=== PATIENT | male | born 1995 | race Caucasian/White ===

== ENCOUNTER 2016-09-26 17:10 | Emergency (ER) | payer OTHER ==
[~2016-09-26] VITALS: Ht 180.3 cm; Wt 84.1 kg
[2016-09-26 17:20] VITALS: BP 138/91; PULSE 94; RESP 18; O2SAT 99
--- NOTE | 2016-09-26 18:12 | ED.REPORT ---
HPI- Male Date of Service Sep 26, 2016 ED Provider: Dr. Milton Edwards Patient is a 21-year-old male who presents to the ED complaining of genital swelling and pain onset two weeks ago. Patient denies any new sexual partners or any trauma that could have led to his symptoms. Pain is exacerbated when he masturbates. Patient denies dysuria and discharge. Nursing Notes Stated Complaint: PENIS SWELLING Chief Complaint: General Complaint Nursing Notes Reviewed: Yes Allergies: Coded Allergies: No Known Allergies (Unverified Allergy, Unknown, 06/06/14) General Time Seen by MD: 18:12 Chief Complaint Penile redness (swelling and pain) Hx Obtained From: Patient Arrived By: Walk-in Onset Occurred: More than a week ago... (2 weeks) Symptom Duration: Since onset Severity: Current: Mild Recent Healthcare: No recent doctor visit, No recent hospitalization Similar Sx Previous: No Past Medical History Past Medical History denies Past Surgical History denies Smoking History Never Smoker Ambulatory Status Independent Review of Systems Male: Reports Penile lesion (penile pain), Denies Dysuria, Denies Penile discharge Complete sys rev & neg: except as marked. Physical Exam normal phallus tenderness of left lateral wall of penis erythema at base of glands no swelling pain increases when he masturbates Initial Vital Signs Vital Signs (First) Date Time Temp Pulse Resp B/P Pulse Ox O2 Delivery O2 Flow Rate FiO2 09/26/16 17:20 36.6 94 18 138/91 99 Room Air Initial VS: Reviewed General/Constitutional: Well-developed, Well-nourished Head / Eyes: Atraumatic, Normocephalic, PERRL ENT: Mucous membranes moist, Conjunctiva normal, No scleral icterus Neck: Supple, Non-tender, Full range of motion Respiratory: Breath sounds normal, Clear to auscultation, No respiratory distress Cardiovascular: Regular rate & rhythm, Heart sounds normal, Intact distal pulses Abdomen / GI: Soft, Non-tender, No guarding, No rebound, No distention Back: No CVA tenderness Lymphatic: No lymphadenopathy Male Genitourinary: Penis NL, No penile discharge normal phalice tenderness of left lateral wall of penis errythema at base of glands no swelling pain increases when he masturbates General/Constitutional: Awake, Alert, Well appearing, Cooperative Distress / Hydration: Positive: Distress mild Behavior: Positive: Anxious Interpretation & Diagnostics Lab Results Interpretation Test 09/26/16 19:39 Urine Color Yellow (YELLOW) Urine Appearance Clear (CLEAR,HAZY) Urine pH 7.0 (5.0-8.0) Urine Specific [place] 1.015 (1.003-1.035) Urine Protein Negativemg/dL (NEG,TRACE) Urine Glucose (UA) Negativemg/dL (NEGATIVE) Urine Ketones Negativemg/dL (NEGATIVE) Urine Occult Blood Negative (NEGATIVE) Urine Nitrite Negative (NEGATIVE) Urine Bilirubin Negative (NEGATIVE) Urine Urobilinogen Normalmg/dL (NORMAL) Urine Leukocyte Esterase Negative (NEGATIVE) Urine RBC 0-2/hpf (0-2) Urine WBC 0-5/hpf (0-5) Urine Epithelial Cells Occasional/hpf (NONE-MOD) Urine Crystals Amorphous urates (NONE Urine Bacteria None/hpf (NONE-FEW) Urine Hyaline Casts None/lpf (NONE) Urine Granular Casts None seen (NONE SEEN) Urine Waxy Casts None seen (NONE SEEN) Urine Red Blood Cell Casts None seen (NONE SEEN) Urine White Blood Cell Casts None seen (NONE SEEN) Urine Mucus None seen (None Seen) Urine Trichomonas None seen (NONE SEEN) Urine Yeast None (NONE SEEN) Urinalysis Comment None Urine Culture Reflexed Not indicated Re-Eval/Medical Decision Counseled Regarding: Diagnosis, Lab results, Need for follow-up, When/why to return to ED Discharge & Departure Shift Change Sign-Out Response to Therapy: Improved Impression: Primary Impression: Pain, penile Disposition: Home Discharge Condition All VS Reviewed: Yes Condition: Stable Patient Instructions: Balanisolitario (ED) Additional Instructions: Apply the mupirocin ointment twice daily under your foreskin as instructed. Doxycycline twice daily for 7 days for possible infection. [place] one every 6 hours as needed for severe pain. This is an opiate and can be habit forming so use it sparingly. Do not drive or drink alcohol or consume acetaminophen while taking the [place]. I would like you to set up a follow-up with the referral urologist and your primary care provider.. It is hard to say exactly why your penis is hurting. Perhaps it was from trauma or perhaps it is from an infection. Either way I think that the antibiotics are important and I also recommended close follow-up with urologist. No sexual intercourse or sexual activity until symptoms have improved. Referrals: Ayush Kerr MD (PCP) Efren Padilla MD Attestation Portion of this note were transcribed by Karishma Yang. I, Dr. Edwards, personally performed the history, physical exam, and medical decision-making: I reviewed and confirmed the accuracy for the information in the transcribed note. Signed by: jennifer Rebolledo, 09/26/16 0000 copies to: Ayush Kerr MD, Todd P DO Sep 26, 2016 18:12 KARISHMA YANG Sep 26, 2016 18:40
[2016-09-26] MEDS ORDERED: Mupirocin 2% 22 Gm Ointment TOPICAL ONE (18:45)
[2016-09-26] MEDS ORDERED: HYDROcodone-APAP 5-325 mg Tablet PO ONE (18:45)
[2016-09-26] MEDS ORDERED: cefTRIAXone Inj 250 MG, Lidocaine PF 1% Inj 0.9 ML in Syringe 1 EACH IM ONE (18:45)
[2016-09-26 19:30] VITALS: BP 138/73; PULSE 78; O2SAT 100
[2016-09-26 19:55] LABS: APPEARANCE,URINE CLEAR (CLEAR,HAZY); COLOR,URINE YELLOW (YELLOW); OCCULT BLOOD,URINE NEGATIVE (NEGATIVE); UROBILINOGEN,URINE NORMAL (NORMAL)
== END 2016-09-26 19:50 | disposition home or self-care (01) ==
LOC: SED 17:10
DX: N48.89 Other specified disorders of penis (principal)
CPT/HCPCS: 81000; 87491; 87591; 96374; 99284; J0696

== ENCOUNTER 2016-12-04 20:13 | Emergency (ER) | payer OTHER ==
[~2016-12-04] VITALS: Ht 180.3 cm; Wt 79.5 kg
[2016-12-04 20:16] VITALS: BP 135/88; PULSE 63; RESP 18; O2SAT 100
--- NOTE | 2016-12-04 21:42 | ED.REPORT ---
HPI- Male Date of Service Dec 04, 2016 ED Provider: Dr. Khang Moreno MD A 21 year old male presents to the ED complaining of penile rash that first appeared several years ago. He reports mild discomfort to the area and pustule drainage after picking at the affected area. Patient presents to the ED tonight because his symptoms became increasingly worse. He was previously seen in the ED on 09/26 for similar symptoms and was discharged in good condition with Doxycycline for possible infection. He denies any other medical complaints at this time. Patient was also previously seen in the ED on 06/06/2014 for an episode of psychosis. Nursing Notes Stated Complaint: RASH Chief Complaint: Skin Rash/Abscess Nursing Notes Reviewed: Yes Allergies: Coded Allergies: No Known Allergies (Verified Allergy, Unknown, 12/04/16) General Time Seen by MD: 21:41 Chief Complaint Penile rash Hx Obtained From: Patient Arrived By: Walk-in Onset Occurred: More than a week ago... (>6 months) Symptom Duration: Since onset Location: : Penis Quality: Aching Radiation: : Does not radiate Severity: Current: Mild Severity: Maximum: Mild Pertinent Negative: Pt denies other symptoms Recent Healthcare: No recent hospitalization, Recent doctor visit Past Medical History Past Medical History Notes: PCP: Dr. Ricardo Past Medical History Hx of Psychosis Past Surgical History Denies Smoking History Never Smoker Social History Other Social History: Local resident Ambulatory Status Independent Review of Systems Constitutional: Denies: Chills, Fever GI: Denies: Nausea, Vomiting Male: Reports Penile discharge Skin: Reports Rash (penis) Complete sys rev & neg: except as marked. Physical Exam Initial Vital Signs Vital Signs (First) Date Time Temp Pulse Resp B/P Pulse Ox O2 Delivery O2 Flow Rate FiO2 12/04/16 20:16 36.1 63 18 135/88 100 Room Air Initial VS: Reviewed Extremities: Vascular intact, Neuro intact, No swelling, No tenderness Skin: Warm, Dry, No cyanosis Neurologic: Alert, Oriented, Nonfocal Male Genitourinary: Atraumatic, Inspection NL, Penis NL (circumcised ) General/Constitutional: Awake, Alert, No acute distress Abdomen: Atraumatic, Soft Head / Eyes: Atraumatic, Normocephalic, PERRL Pupils: Positive: Dilated L, Dilated R Respiratory / Chest: Atraumatic, No respiratory distress Abnormal Mood/Affect: Positive: Flat affect Re-Eval/Medical Decision Re-Evaluation/Progress : Time of Eval: 22:23 Patient Status: Condition improved Re-Evaluation/Progress Note: Patient understands and agrees with the plan to discharge with follow up. Counseled Regarding: Diagnosis, Need for follow-up, When/why to return to ED Discharge & Departure Impression: Primary Impression: Normal appearance of male genitalia Disposition: Home Discharge Condition All VS Reviewed: Yes Condition: Improved Additional Instructions: the small lumps you see on the shaft of your penis are normal parts of the skin. do not squeeze them or otherwise injure yourself. follow up with Dr Ricardo if you have other qestions about this. Referrals: Som Ricardo MD (PCP) Scribe Attestation Portions of this note were transcribed by Radu Hope. I, Dr. Moreno personally performed the history, physical exam and medical decision-making; I reviewed and confirmed the accuracy of the information in the transcribed note. Signed by: Doug Paul, 12/04/16 1500. copies to: Som Ricardo MD, Donald L MD Dec 04, 2016 21:41 RADU HOPE Dec 04, 2016 21:47
[2016-12-04 22:03] VITALS: BP 139/86; PULSE 66; RESP 16; O2SAT 98
[2016-12-04 22:06] VITALS: BP 139/86; PULSE 66; RESP 16; O2SAT 98
== END 2016-12-04 22:10 | disposition home or self-care (01) ==
LOC: SED 20:13
DX: N48.89 Other specified disorders of penis (principal); Z00.00 Encounter for general adult medical examination without abnormal findings

== ENCOUNTER 2016-12-23 16:14 | Emergency (ER) | payer OTHER ==
[~2016-12-23] VITALS: Ht 180.3 cm; Wt 79.5 kg
[2016-12-23 16:32] VITALS: BP 128/84; PULSE 79; RESP 16; O2SAT 99
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
[2016-12-23 20:20] VITALS: BP 125/77; PULSE 69; RESP 20; O2SAT 97
== END 2016-12-23 20:21 | disposition home or self-care (01) ==
LOC: SED 16:14
DX: F32.9 Major depressive disorder, single episode, unspecified (principal); F23 Brief psychotic disorder; F41.9 Anxiety disorder, unspecified